=== PATIENT | male | born 1965 | race Caucasian/White ===

== ENCOUNTER 2019-10-14 01:58 | Inpatient (IN) | payer OTHER ==
[~2019-10-14] VITALS: Ht 185.4 cm; Wt 108.6 kg
[2019-10-14] MEDS ORDERED: B-1100 M1 PO (02:31)
[2019-10-14] MEDS ORDERED: FOLI400 PO (02:31)
[2019-10-14] MEDS ORDERED: MELATONIN 5 MG1 EACH PO (02:32)
[2019-10-14] MEDS ORDERED: MULTI-VITAMIN1 EAC2 PO (02:32)
[2019-10-14] MEDS ORDERED: LISI20 PO (02:33)
[2019-10-14] MEDS ORDERED: FAMO20 PO (02:34)
[2019-10-14] MEDS ORDERED: DULO60 PO (02:34)
[2019-10-14] MEDS ORDERED: OMEP20ER PO (02:34)
[2019-10-14] MEDS ORDERED: HYDPAM50 PO (02:35)
[2019-10-14] MEDS ORDERED: METO25 PO (02:36)
[2019-10-14] MEDS ORDERED: CLON.1 PO (02:37)
[2019-10-14] MEDS ORDERED: PROM25 PO (02:38)
[2019-10-14] MEDS ORDERED: TRAZ50 PO (02:39)
[2019-10-14 03:05] LABS: BASOPHILS ABSOLUTE AUTO 0.05 K/mm3 (0.00-0.23); BASOPHILS PERCENT AUTO 1 % (0-2); EOSINOPHILS PERCENT AUTO 2 % (0-6); Hematocrit 39.1 % (37.0-53.0); Hemoglobin 13.9 g/dL (13.5-17.5); IMMATURE GRAN ABSOLUTE AUTO 0.02 K/mm3 (0.00-0.10); IMMATURE GRAN PERCENT AUTO 1 % (0-1); LYMPHOCYTES ABSOLUTE AUTO 1.25 K/mm3 (0.84-5.20); LYMPHOCYTES PERCENT AUTO 30 % (21-46); MONOCYTES ABSOLUTE AUTO 0.61 K/mm3 (0.16-1.47); MONOCYTES PERCENT AUTO 15 % (4-13); Mean Corpuscular HGB 34.9 pg (26.0-34.0); Mean Corpuscular HGB Conc 35.5 g/dL (31.5-36.5); Mean Corpuscular Volume 98 fL (80-100); NEUTROPHILS ABSOLUTE AUTO 2.19 K/mm3 (1.96-9.15); NEUTROPHILS PERCENT AUTO 52 % (41-73); Platelet Count 85 K/mm3 (150-400); RDW Coefficient Variation 12.9 % (11.7-14.2); RDW Standard Deviation 46.6 fL (35.1-46.3); Red Blood Cell Count 3.98 M/mm3 (4.30-5.90); White Blood Cell Count 4.22 K/mm3 (4.00-11.30)
[2019-10-14 03:20] LABS: Alanine Aminotransfer (ALT/SGP 46 U/L (12-78); Albumin, Blood 3.4 g/dL (3.4-5.0); Alk Phos 58 U/L (50-136); Anion Gap 9 mmol/L (6-16); Aspartate Aminotrans (AST/SGOT 57 U/L (12-37); Blood Urea Nitrogen 8 mg/dL (8-24); Bun/Creatinine Ratio 10.6 (12.0-20.0); CO2, Blood 24 mmol/L (21-32); Calcium, Blood 8.6 mg/dL (8.5-10.1); Chloride, Blood 104 mmol/L (98-108); Creatinine, Blood 0.76 mg/dL (0.60-1.20); Globulin, Blood 3.4 g/dL (2.2-4.0); Glomerular Filtration Rate >60 (60-); Glucose, Blood 86 mg/dL (70-99); Potassium, Blood 3.6 mmol/L (3.5-5.5); Sodium, Blood 137 mmol/L (136-145); Total Protein, Blood 6.8 g/dL (6.4-8.2)
--- NOTE | 2019-10-14 06:39 | NUR ---
PT TO ICU ROOM 3 FROM ED AT 0527. PT ALERT TO SELF, FOLLOWS DIRECTIONS BUT NEEDS TO BE REDIRECTED OFTEN. PT EXPERIENCING AUDITORY AND VISUAL DISTURBANCES. PT BELIEVES HE IS "DRIVING HOSPITAL BED" AND IS UNABLE TO "REACH PEDALS", PT MUMBLES INCOHERENTLY, BELIEVES HE IS IN "[place]" AND THAT THE MONTH IS "OCTOBER". PT REORIENTED OFTEN. PT ATTEMPTS TO UNSAFELY AMBULATE AND PULLS ON LINES/CORDS. BED IN LOW/LOCKED POSITION, BED ALARM ON, DOOR/CURTAIN OPEN. PT HAS VISIBLE TREMORS, APPEARS DIAPHORETIC, AND EXPERIENCING TACTILE DISTURBANCES. PT GIVEN 100 MG LIBRIUM UPON ARRIVAL TO ICU WITH LITTLE IMPROVEMENT IN SYMPTOMS, 4 MG ATIVAN GIVEN AND PRECEDEX GTT STARTED. PRECEDEX CURRENTLY AT 0.7 MCG/KG/HR. SEE ADMISSION ASSESSMENT. WILL REPORT TO DAYSHIFT NURSE
--- NOTE | 2019-10-14 08:00 | NUR ---
INITIAL ASSESMENT PT ORIENTED TO SELF, ON PDEX QTT PER MD ORDER AND ATIVAN IV PRN FOR CIWA GREATER THAN 15, CIWAS AVERAGING MID TO HIGH 20S, PT HALLUCINATING BOTH VISUAL AND AUDITORY. PT VERBALLY ABUSIVE AND CURSING. REORIENTATION AND SUPPORT OFFERED, PT SPITTING WATER WHEN OFFERED. AWAN AND WILL NOT FOLLOW COMMANDS. VSS, SR AND AFEBRILE. RA WITH SATS IN THE MID 90S AND CLEAR T/O BILAT BEREATH SOUNDS. INCONTINENT OF URINE. NO BM AND ABD SOFT ROUND AND NON TENDER. RIGHT INNER THIGH AND [place] BRUISED PER FLOWSHEET. WILL CONT TO MONITOR
[2019-10-14 11:46] LABS: Anion Gap 6 mmol/L (6-16); Blood Urea Nitrogen 6 mg/dL (8-24); Bun/Creatinine Ratio 9.3 (12.0-20.0); CO2, Blood 22 mmol/L (21-32); Calcium, Blood 8.6 mg/dL (8.5-10.1); Chloride, Blood 109 mmol/L (98-108); Creatinine, Blood 0.64 mg/dL (0.60-1.20); Glomerular Filtration Rate >60 (60-); Glucose, Blood 100 mg/dL (70-99); Potassium, Blood 3.7 mmol/L (3.5-5.5); Sodium, Blood 137 mmol/L (136-145)
--- NOTE | 2019-10-14 15:05 | NUR ---
PT UPDATE PT INCONTINENT OF URINE AND UNABLE TO MEASURE CORRECT INTAKE AND OUTPUT A RESULT. MD NOTIFIED AND SMITH ORDER PLACED. [employer] R[employer]TE SALES REPRESENTATIVE AND THIS RN INSERTED FOLEYT WITH NO EVENTS. PT BECAME AGGITATED AND VERBALLY ABUSIVE WHEN TRYING TO CHANGE SOILED LINENS. PT SUPPORTED, REDIRECTED AND ORIENTED TO CARE, PT SAT UP IN BED ATTEMPTING TO [employer]CH ROUTE SALES REPRESENTATIVE, THEN ATTEMPTING TO PUNCH THIS RN. SECURITY AND CN CALLED, SECURITY AT BEDSIDE TO ASSIT WITH ASSURING PT AND STAFF SAFETY, TUFF CUFFS APPLIED WITH NO EVENT, PRN ATIVAN PER PROTOCOL. WILL CONT TO MONITOR
[2019-10-14 15:39] LABS: Source, Urine Catheter
[2019-10-14 15:47] LABS: Appearance, Urine Clear (Clear); Bilirubin, Urine Neg (Neg); Blood, Urine Neg (Neg); Color, Urine Yellow (P-Yellow); Glucose Qualitative, Urine Neg (Neg); Ketones, Urine Neg (Neg); Leukocyte Esterase, Urine Neg (Neg); Nitrite, Urine Neg (Neg); Protein, Urine Neg (Neg); Specific Gravity, Urine 1.005 (1.003-1.022); Urobilinogen, Urine NORM (Normal)
--- NOTE | 2019-10-14 20:05 | NUR ---
ASSUMED CARE OF PT, REPORT RCV'D FROM JENNIE ROYAL.] PT CURRENTLY IN BILATERAL UPPER/LOW TAT WITH ELLI. PRECEDEX GTT INFUSING AT 0.4 MCG/KG/HR. PT ALERT TO VERBAL STIMULUS, CONFUSED WITH NONSENSICAL WORDS. PRECEDEX PLACED ON STANDBY BRIEFLY TO ASSESS NEURO STATUS. PT QUICKLY BECAME AGITATED, PULLING ON RESTRAINTS AND CURSING. PT REORIENTED AND PRECEDEX RESTARTED. PT IS VISIBLY TREMULOUS AND DIAPHORETIC. SEIZURE PADS IN PLACE. BED IN LOW/LOCKED POSITION, DOOR/CURTAIN OPEN. CIWA PROTOCOL IN PLACE. SEE FULL SHIFT ASSESSMENT.
--- NOTE | 2019-10-15 01:18 | NUR ---
PT AWAKE PULLING ON RESTRAINTS YELLING "I WANT MY OLD LIFE BACK" PT REORIENTED, PT IRRITABLE, CURSING, AND YELLING TO BE RELEASED. GAVE PT SIPS OF WATER, PT COUGHED, PT NOW SPITTING IN ROOM. WILL HOLD PO MEDICATIONS UNTIL BETTER ABLE TO FOLLOW COMMANDS AND SAFELY SWALLOW. WILL CONTINUE TO MONITOR.
--- NOTE | 2019-10-15 02:35 | NUR ---
PT AGITATED AND REQUESTING TO GO "AMA" AND SPEAK WITH THE "HEAD DOCTOR". PT WAS ABLE TO SWALLOW PO LIBRIUM IN APPLESAUCE, AND TOLERATE ORAL CARE. PT CONTINUES TO BE CONFUSED ASKING HOW LONG THESE "SESSIONS LAST" AND REQUESTING HIS "OLD LIFE BACK". OCCASIONALLY PT MUMBLES INCOHERENTLY AND SPEAKS NONSENSICAL. ORAL CARE PERFORMED Q4 PRN. PT'S BEDDING CHANGED PT HAD SPIT ON BLANKETS.
[2019-10-15 03:36] LABS: Hematocrit 45.1 % (37.0-53.0); Mean Corpuscular HGB 34.9 pg (26.0-34.0); Mean Corpuscular HGB Conc 35.5 g/dL (31.5-36.5); Mean Corpuscular Volume 99 fL (80-100); Mean Platelet Volume 10.9 fL (9.1-12.4); Platelet Count 80 K/mm3 (150-400); RDW Coefficient Variation 13.1 % (11.7-14.2); RDW Standard Deviation 47.2 fL (35.1-46.3); Red Blood Cell Count 4.58 M/mm3 (4.30-5.90); White Blood Cell Count 9.05 K/mm3 (4.00-11.30)
[2019-10-15 03:52] LABS: Anion Gap 11 mmol/L (6-16); Blood Urea Nitrogen 8 mg/dL (8-24); CO2, Blood 18 mmol/L (21-32); Calcium, Blood 8.5 mg/dL (8.5-10.1); Chloride, Blood 109 mmol/L (98-108); Glomerular Filtration Rate >60 (60-); Glucose, Blood 96 mg/dL (70-99); Magnesium, Blood 1.8 mg/dL (1.6-2.4); Phosphorus, Blood 2.9 mg/dL (2.5-4.9); Sodium, Blood 138 mmol/L (136-145)
--- NOTE | 2019-10-15 06:09 | NUR ---
SHIFT SUMMARY PT REMAINS CONFUSED AND AGITATED. LORAZEPAM GTT INFUSING AT 10 MG/MIN. PT'S VSS AND TOLERATING INFUSION RATE WELL. PT DIAPHORETIC, VISIBLE TREMORS, CONFUSED TO PLACE (BELIEVES HE IS IN DETENTION), HALLUCINATING (BELIEVES WE ARE EXPERIMENTING ON HIM). PT PULLS ON RESTRAINTS AND TRIES TO GRAB IV'S AND SMITH. PT REMAINS IN 4PT TAT'S WITH ELLI FOR PT SAFETY. PT FREQUENTLY REASSURED AND REORIENTED. WILL REPORT TO DAYSHIFT NURSE.
--- NOTE | 2019-10-15 12:00 | NUR ---
PT UPDATE PT YELLING, AND AGGITATED DESPITE 8MG IV ATIVAN INFUSION AND PDEX INFUSION WELL IV ATIVAN PRN PER MD ORDER. REMAINS ON RA AND TACHYPNIC WITH DIM BREATH SOUNDS BILAT. WILL NOT FOLLOW COMMANDS AND ATTEMPTS TO HIT. VSS AFEBRILE ANF UO ADEQUATE. PATIENT SPIT OUT AM MEDS AND WILL NOT TAKE ANYTHING PO. WILL CONT TO MONITOR
--- NOTE | 2019-10-15 13:45 | NUR ---
PT UPDATE PT REMAINS AGGITATED AND YELLING, PRN ATIVAN PER MD ORDER AND DRIPS REMAIN. RESTRAINTS REMAIN IN PLACE AND PT UNABLE TO REDIRECT. COURSE AND DIM BREATH SOUNDS BILAT AND EXP WHEEZING AUDIBLE WITH RR IN THE 40S AT TIMES. RT ASKED TO EVAL PATIENT FOR RESP NEEDS.
--- NOTE | 2019-10-15 14:30 | NUR ---
PT UPDATE PT RR IN THE 40S, AUDIBLE SPUTUM IN AIRWAY, WITH SATS IN THE 80S, NC PLACED AND RT AT BEDSIDE TO NT SXN PT WITH VERY LARGE AMOUNT OF YELLOW SPUTUM SXND. RESP STATUS REMAINS LABORED AND COURSE, ALL DRIPS OFF. ADVISED AND PREPARING FOR INTUBATION. PT INTUBATED VIA ED DOC. VENT SET UP OG PLACED. CXR OBTAINED AND PROPOFOL STARTED.
--- NOTE | 2019-10-15 15:43 | NUR ---
WASTED 95ML OF ATIVAN WITH CAMERON CABRALES RN FROM PTS ATIVAN GTT
[2019-10-15 16:15] LABS: Bicarbonate Venous 22.8 mmol/L (24.0-30.0); PCO2 Venous 39.9 mmHg (38-42); PO2 Venous 75.2 mmHg (38-42); pH Blood Venous 7.37 (7.34-7.37)
--- NOTE | 2019-10-15 19:33 | NUR ---
INITIAL ASSESMENT PT ORIENTED TO SELF, ON PDEX QTT PER MD ORDER AND ATIVAN QTT FOR CIWA GREATER THAN 15, CIWAS AVERAGING MID TO HIGH 30S, PT HALLUCINATING BOTH VISUAL AND AUDITORY. PT VERBALLY ABUSIVE AND CURSING. REORIENTATION AND SUPPORT OFFERED, PT SPITTING. AWAN AND WILL NOT FOLLOW COMMANDS FIGHTING RESTRAINTS. VSS, SR AND AFEBRILE. RA WITH SATS IN THE MID 90S AND COURSE T/O BILAT DIM SOUNDS. INCONTINENT OF URINE WITH SMITH IN PLACE AND DRAINING DARK POOJA URINE. NO BM AND ABD SOFT ROUND AND NON TENDER
--- NOTE | 2019-10-15 22:09 | NUR ---
ASSUMED CARE OF PT, REPORT RCV'D FROM JENNIE ROYAL. PT INTUBATED AND SEDATED. VENT SETTINGS AC 14/450/5/40%. PT SEDATED WITH PROPOFOL 15 MCG/KG/MIN, PRECEDEX INFUSION AT 0.6 MCG/KG/HR ADJUNCT TO SEDATION PT'S BP UNABLE TO TOLERATE HIGHER DOSE OF PROPOFOL AT THIS TIME. NS @ 200 MLS/HR INFUSING. OGT TO LIS, PT HAS OCCASIONAL PRODUCTIVE COUGH WITH MODERATE AMOUNT OF THICK YU SPUTUM SUCTIONED. SMITH PATENT AND DRAINING POOJA COLORED URINE. PT VISIBLY TREMULOUS, BODY IS STIFF WITH REPOSITIONING. WILL CONTINUE CIWA PROTOCOL TO ASSESS WITHDRAWAL SYMPTOMS. LIBRIUM ADMINISTERED PER TUBE, ATIVAN ADMINISTERED PER EMAR/CIWA. SEE FULL SHIFT ASSESSMENT
[2019-10-16 03:26] LABS: Hematocrit 41.1 % (37.0-53.0); Hemoglobin 14.1 g/dL (13.5-17.5); Mean Corpuscular HGB 34.9 pg (26.0-34.0); Mean Corpuscular HGB Conc 34.3 g/dL (31.5-36.5); Mean Platelet Volume 11.2 fL (9.1-12.4); Platelet Count 83 K/mm3 (150-400); RDW Coefficient Variation 13.3 % (11.7-14.2); RDW Standard Deviation 50.6 fL (35.1-46.3); Red Blood Cell Count 4.04 M/mm3 (4.30-5.90); White Blood Cell Count 7.05 K/mm3 (4.00-11.30)
[2019-10-16 03:29] LABS: Mean Corpuscular Volume 102 fL (80-100)
[2019-10-16 03:40] LABS: Anion Gap 7 mmol/L (6-16); Blood Urea Nitrogen 9 mg/dL (8-24); Bun/Creatinine Ratio 11.4 (12.0-20.0); CO2, Blood 23 mmol/L (21-32); Calcium, Blood 7.6 mg/dL (8.5-10.1); Chloride, Blood 109 mmol/L (98-108); Creatinine, Blood 0.79 mg/dL (0.60-1.20); Glomerular Filtration Rate >60 (60-); Glucose, Blood 102 mg/dL (70-99); Potassium, Blood 3.4 mmol/L (3.5-5.5); Sodium, Blood 139 mmol/L (136-145)
--- NOTE | 2019-10-16 06:17 | NUR ---
SHIFT SUMMARY PT REMAINS INTUBATED, VENT SETTINGS AC 14/450/5/30%. SEDATED WITH PROPOFOL 25 MCG/KG/MIN AND PRECEDEX 0.6 MCG/KG/HR. PT EXHIBITS INCREASING TREMORS AND STIFFNESS WITH STIMULI REQUIRING ATIVAN. PT SPENT MOST OF SHIFT ADEQUATELY SEDATED UNTIL APPRO 0430 WHEN PT BECAME INCREASINGLY AGITATED THRASHING HEAD BACK/FORTH, PULLING ON RESTRAINTS, KICKING LEGS. RR INCREASED TO 40-60, O2 SATURATION DECREASED TO LOW 80'S, WITH INCREASED PEAK PRESSURES. RT AT BEDSIDE, PT SUCTIONED AND SEDATION TEMPORARILY INCREASED. MODERATE AMOUNT OF THICK YU SECRETIONS SUCTIONED FROM ETT. 200 MLS GREEN BILE FRO OGT. BP AND HR REMAINED WNL. WILL REPORT TO DAYSHIFT NURSE.
--- NOTE | 2019-10-16 08:00 | NUR ---
INITIAL ASSESMENT PT ON PDEX QTT AND PROPOFOL QTT PER MD ORDER AND ATIVAN PRN FOR CIWA GREATER THAN 15, PT WILL FOLLOW SIMPLE COMMANDS WITH SEDATION OFF BUT QUICKLY BECOMES AGGITATED, UNABLE TO REDIRECT AND STARTS TO FIGHT THE VENT AND PULL ON LINES AND TUBES, FIGHTING RESTRAINTS AND LIMITING VENTILATION. SEDATE RESUMED VSS, SR AND AFEBRILE. 30% WITH SATS IN THE MID 90S AND COURSE T/O BILAT DIM SOUNDS WITH 8.0 ETT AT 24. TF TO BE INITIATED FOLLWOING DIETARY CONSULT. SMITH IN PLACE AND DRAINING DARK POOJA URINE. NO BM AND ABD SOFT ROUND AND NON TENDER. WILL CONT TO MONITOR AND SWITCH PT OFF PS VENT IF NEEDED.
--- NOTE | 2019-10-16 16:00 | NUR ---
PT UPDATE NO ACUTE CHANGES. PT REMAINS ON SBT AND PDEX/PROPOFOL INFUSING PER MD ORDER. PT WILL WITHDRAW FROM PAIN, VSS, VENT SETTINGS REMAIN AND STABLE. UO MINIMAL BUT ADEQUATE. TOLERATING TF. WILL CONT TO MONITOR
[2019-10-17 03:19] LABS: BASOPHILS ABSOLUTE AUTO 0.04 K/mm3 (0.00-0.23); BASOPHILS PERCENT AUTO 1 % (0-2); EOSINOPHILS ABSOLUTE AUTO 0.08 K/mm3 (0.00-0.68); EOSINOPHILS PERCENT AUTO 1 % (0-6); Hematocrit 40.1 % (37.0-53.0); Hemoglobin 13.8 g/dL (13.5-17.5); IMMATURE GRAN ABSOLUTE AUTO 0.04 K/mm3 (0.00-0.10); IMMATURE GRAN PERCENT AUTO 1 % (0-1); LYMPHOCYTES ABSOLUTE AUTO 1.22 K/mm3 (0.84-5.20); LYMPHOCYTES PERCENT AUTO 18 % (21-46); MONOCYTES ABSOLUTE AUTO 1.42 K/mm3 (0.16-1.47); MONOCYTES PERCENT AUTO 21 % (4-13); Mean Corpuscular HGB Conc 34.4 g/dL (31.5-36.5); Mean Corpuscular Volume 102 fL (80-100); Mean Platelet Volume 10.9 fL (9.1-12.4); NEUTROPHILS ABSOLUTE AUTO 3.92 K/mm3 (1.96-9.15); NEUTROPHILS PERCENT AUTO 58 % (41-73); Platelet Count 88 K/mm3 (150-400); RDW Coefficient Variation 13.2 % (11.7-14.2); RDW Standard Deviation 49.4 fL (35.1-46.3); Red Blood Cell Count 3.94 M/mm3 (4.30-5.90); White Blood Cell Count 6.72 K/mm3 (4.00-11.30)
[2019-10-17 03:34] LABS: Anion Gap 6 mmol/L (6-16); Blood Urea Nitrogen 9 mg/dL (8-24); Bun/Creatinine Ratio 12.3 (12.0-20.0); CO2, Blood 25 mmol/L (21-32); Calcium, Blood 7.8 mg/dL (8.5-10.1); Chloride, Blood 109 mmol/L (98-108); Creatinine, Blood 0.73 mg/dL (0.60-1.20); Glomerular Filtration Rate >60 (60-); Glucose, Blood 99 mg/dL (70-99); Magnesium, Blood 1.9 mg/dL (1.6-2.4); Phosphorus, Blood 2.6 mg/dL (2.5-4.9); Potassium, Blood 3.3 mmol/L (3.5-5.5); Sodium, Blood 140 mmol/L (136-145)
--- NOTE | 2019-10-17 06:18 | NUR ---
SHIFT SUMMARY PATIENT DID WELL TONIGHT. INCREASED PROPOFOL DRIP FOR AGITATION, TOLERATED VENTILATOR THROUGH REST OF NIGHT. VERY STRONG, EVERY TIME WE TURNED PATIENT MADE STRENUOUS EFFORT TO ATTEMPT TO SELF-EXTUBATE. VSS. ASSESSMENT IS CHARTED. WILL CONTINUE TO MONITOR.
--- NOTE | 2019-10-17 07:00 | NUR ---
ASSUMING CARE: ASSUMED CARE OF PT. PT IS INTUBATED AND VENTED. AFEBRILE. PT IS ON SPONTANEOUS BREATHING TRIAL 03/26, FI02 @ 30%. PT IS ON PROPOFOL DRIP @ 20MCG/KG/MIN, PRECEDEX @ 0.MCG/KG/HR. HE DOES NOT OPEN HIS EYES TO VOICE BUT DOES FOLLOW COMMANDS. ON TUBE FEEDINGS WITH HIGH VITAL PROTEIN @ 45ML/HR WITH MINIMAL RESIDUAL. PT HAS BEEN ON SPONTANEOUS BREATHING TRIAL FOR ALMOST 24 HOURS NOW.
--- NOTE | 2019-10-17 09:37 | NUR ---
PT IS STILL ON SBT. TOLERATING WELL. PT STARTED TO BE SLIGHTLY RESTLESS AND REACHING FOR THE TUBE. INCREASED PROPOFOL DRIP TO 26MCG/KG/MIN.
--- NOTE | 2019-10-17 10:50 | NUR ---
DR. BEACH AT BEDSIDE UPDATED HER OF PT'S STATUS. TURNED OFF PRECEDEX AND PROPOFOL DRIP @ 1055 THIS MORNING.
--- NOTE | 2019-10-17 11:30 | NUR ---
1124- PT WAS EXTUBATED TO ROOM AIR AT THIS TIME.
--- NOTE | 2019-10-17 15:30 | NUR ---
DR. BEACH WAS NOTIFIED REGARDING PT EXPRESSING TO GO HOME AGAINST MEDICAL ADVICE. PT IS ORIENTED AT TIMES BUT MOSTLY CONFUSED. CALLED PT'S DAUGHTER JORGE, SHE WAS ABLE TO TALK TO THE PATIENT. DR. BEACH TALKED TO THE PATIENT WELL. PT IS NOT PHYSICALLY ABLE TO GET UP OUT OF BED. PT IS WEAK. PT IS STILL ON ALCOHOL WITHDRAWAL.
--- NOTE | 2019-10-17 18:23 | NUR ---
174-NOTED PT STANDING AT THE SIDE OF THE BED WITH BED RAILS UP. PT WAS TRYING TO LEAVE. DR. BEACH WAS NOTIFIED REGARDING THIS. ORDERS TO GIVE PATIENT 2 MG OF ATIVAN AND INCREASE PRECEDEX DRIP TO 1.4MCG/KG/HR MAX DOSE. 1819-PT IS CALM AT THIS TIME AND ASLEEP. DR. BEACH WAS NOTIFIED PT OF PT'S PROGRESS.
--- NOTE | 2019-10-17 19:25 | NUR ---
SHIFT SUMMARY: PT IS ASLEEP AT THIS TIME. ON PRECEDEX DRIP @ 1.4MCG/KG/HR ORDERED BY DR. BEACH. PT'S DAUGHTER JORGE WAS NOTIFIED REGARDING PT GETTING OUT OF BED AND NOW ON RESTRAINTS. AFEBRILE. PT HAD RECEIVED 2 DOSES OF HYDRALAZINE FOR HYPERTENSION AND 2 DOSES OF ATIVAN FOR ALCOHOL WITHDRAWAL. CIWA 21-26.
--- NOTE | 2019-10-17 22:57 | NUR ---
CARE ASSUMED BEDSIDE REPORT RECEIVED, CARE ASSUMED AT 1900 FROM JENNIE DELACRUZ. UPON ASSUMING CARE, PT IN TOUGH CUFFS TO ALL FOUR EXTREMITIES. PT AROUSES, BUT CONFUSED AND ANGRY. PT BEGINS YELLING, DIFFICULT TO UNDERSTAND. PULLING AT RESTRAINTS. NUBIA, DAY SHIFT RN TO BEDSIDE TO CALM PT. PT QUICKLY CALMS, AND GOES BACK TO SLEEP. VITALS STABLE WITH EXEPTION OF ELEVATED BLOOD PRESSURE, SEE FLOWSHEET. INITIAL ASSESSMENT REVEALED TOUGH CUFFS IN GOOD PLACEMENT, ALL FOUR EXTREMITIES PINK, WARM AND DRY. AT REPEAT ASSESSMENT AT 2100, LEFT HAND COMPLETELY BLUE/PURPLE PT HAD PULLED ON RESTRAINT AND IT HAD GONE UP FURTHER ON WRIST AND WAS CUTTING OF CIRCULATION. TOUGH CUFF IMMEDIATELY REMOVED. HAND DISCOLORATION IMPROVED WITHIN 2 MINUTES, PT ABLE TO SQUEEZE HAND WHEN REQUESTED. PT TAKEN OUT OF TOUGH CUFFS AND PUT IN VEST AND BILATERAL WRIST RESTRAINTS TO CONTINUE TO PROTECT PT FROM FALLS, ACCIDENTAL SELF HARM, OR PULLING AT LINES. PT ALSO NOTED TO HAVE EXTREMELY LABILE CIWA ASSESSMENTS AND RESPONSE TO PRECEDEX SEDATION. PT GOES FROM COMPLETELY ASLEEP, BREATHING SHALLOW AND DIFFICULT TO AROUSE, TO AWAKE, PULLING AT RESTRAINTS, AND TALKING. PT APPEARS FRUSTRATED/UPSET BUT IS DIFFICULT TO UNDERSTAND. ATTEMPTED TO TITRATE PRECEDEX DOWN UNSUCCESSFULLY. WHEN DECREASED, PT SITS UP IN BED, THROWS LEGS OUT OF BED, SAYS, "I AM GETTING OUT OF HERE!" UNABLE TO REASON WITH PATIENT HE DOES NOT REDIRECT WHEN EDUCATED. PRECEDEX BACK TO INITIAL RATE OF 1.4 MCG/KG/HR. BLOOD PRESSURE CONTINUES TO BE ELEVATED, LIKELY RELATED TO AGITATION, BUT HESITANT TO GIVE PT ADDITIONAL SEDATIVE SUCH ATIVAN HE IS DIFFICULT TO AROUSE, HAS SHALLOW RESPIRATIONS AND WEAK COUGH WHEN ON THE SEDATED SIDE OF HIS LABILE RESPONSE TO THE PRECEDEX. WILL CONTINUE TO CLOSELY MONITOR SEDATION, CIWA AND VITAL SIGNS.
--- NOTE | 2019-10-18 03:00 | NUR ---
AGITATION ATTEMPTED TO GIVE PATIENT OPPORTUNITY TO BE OFF OF SOFT WRIST RESTRAINTS. PATIENT IMMEDIATELY PULLING AT SMITH AND IV LINES. CUSSING AND STATING, "I AM TAKING ALL THIS OFF AND GETTING OUT OF HERE." PT INITIALLY REDIRECTABLE AND APPEARS TO UNDERSTAND, THEN OUT OF NOWHERE LUNGES FACE, ARMS AND LEGS TOWARD STAFF AND STARTS YELLING. BILAT WRIST RESTRAINTS PLACED BACK ON.
[2019-10-18 03:48] LABS: BASOPHILS ABSOLUTE AUTO 0.06 K/mm3 (0.00-0.23); BASOPHILS PERCENT AUTO 1 % (0-2); EOSINOPHILS PERCENT AUTO 2 % (0-6); Hematocrit 42.4 % (37.0-53.0); Hemoglobin 14.8 g/dL (13.5-17.5); IMMATURE GRAN ABSOLUTE AUTO 0.02 K/mm3 (0.00-0.10); IMMATURE GRAN PERCENT AUTO 0 % (0-1); LYMPHOCYTES ABSOLUTE AUTO 1.34 K/mm3 (0.84-5.20); LYMPHOCYTES PERCENT AUTO 22 % (21-46); MONOCYTES ABSOLUTE AUTO 1.75 K/mm3 (0.16-1.47); MONOCYTES PERCENT AUTO 29 % (4-13); Mean Corpuscular HGB 34.7 pg (26.0-34.0); Mean Corpuscular HGB Conc 34.9 g/dL (31.5-36.5); Mean Platelet Volume 10.9 fL (9.1-12.4); NEUTROPHILS ABSOLUTE AUTO 2.79 K/mm3 (1.96-9.15); NEUTROPHILS PERCENT AUTO 46 % (41-73); Platelet Count 110 K/mm3 (150-400); RDW Coefficient Variation 12.7 % (11.7-14.2); RDW Standard Deviation 46.5 fL (35.1-46.3); Red Blood Cell Count 4.27 M/mm3 (4.30-5.90); White Blood Cell Count 6.06 K/mm3 (4.00-11.30)
[2019-10-18 03:50] LABS: Mean Corpuscular Volume 99 fL (80-100)
[2019-10-18 04:03] LABS: Anion Gap 7 mmol/L (6-16); Blood Urea Nitrogen 5 mg/dL (8-24); Bun/Creatinine Ratio 7.5 (12.0-20.0); CO2, Blood 26 mmol/L (21-32); Calcium, Blood 8.5 mg/dL (8.5-10.1); Chloride, Blood 110 mmol/L (98-108); Creatinine, Blood 0.67 mg/dL (0.60-1.20); Glomerular Filtration Rate >60 (60-); Glucose, Blood 98 mg/dL (70-99); Magnesium, Blood 1.8 mg/dL (1.6-2.4); Phosphorus, Blood 2.4 mg/dL (2.5-4.9); Potassium, Blood 3.3 mmol/L (3.5-5.5); Sodium, Blood 143 mmol/L (136-145)
--- NOTE | 2019-10-18 05:29 | NUR ---
SUMMARY SINCE PREVIOUS NOTE, PT HAS BEEN SLEEPING, INTERMITTENTLY AROUSING TO YELL/CUSS AT STAFF WITHOUT STIMULATION. MULTIPLE ATTEMPTS TO EDUCATE PATIENT. PT NOT RECEPTIVE TO EDUCATION. PRECEDEX HAS CONTINUED AT 1.4 MCG/KG/HR. PT HAS NOT BEEN GIVEN ATIVAN. LIBRIUM HELD PT NOT ABLE TO TOLERATE PO. ATTEMPTED SMALL SPOON FULL OF WATER TWO TIMES AND PT HAD WEAK COUGH AFTER EACH ATTEMPT. HYDRALAZINE TO MANAGE ELEVATED BLOOD SUGARS. PT REPOSITIONING SELF FREQUENTLY IN BED. SEE EMAR, FLOWSHEET AND REPEAT ASSESSMENTS.
--- NOTE | 2019-10-18 11:22 | NUR ---
CARE ASSUMED ASSESSMENT COMPLETED. PRECEDEX AT 1.4MCG, PT DROWSY, WAKES TO VOICE, COOPERATIVE WITH CARE AT THIS TIME BUT REMAINS CONFUSED. VSS, HR 60'S NSR, LS CTA. SMITH PATENT AND DRAINING, SCD'S ON. PT REMAINS IN BUE RESTRAINTS AND ELLI. WATER GIVEN, PT TOLERATED WELL, AM MEDS ADMINISTERED. DR. BEACH IN TO SEE PT, FLUIDS INFUSING PER ORDERS. WILL MEDICATE FOR HTN PRN AND TITRATE PRECEDEX ABLE. PT HAD LIBRIUM PO WITH AM MEDS. MOODS LABILE, NO AGGRESSIVE BEHAVIORS NOTED THIS MORNING.
--- NOTE | 2019-10-18 12:17 | NUR ---
UPDATE SAFETY PLAN COMPLETED BY [facility]. PT'S VS REMAIN STABLE, EATING LUNCH AT THIS TIME, PLEASANT AND COOPERATIVE. POISON CONTROL UPDATED, CASE CLOSED. PT MEDICATED WITH ATIVAN FOR MILD ANXIETY, DENIES OTHER NEEDS. MONITORING AND SUICIDE PRECAUTIONS REMAIN IN PLACE.
--- NOTE | 2019-10-18 12:19 | NUR ---
UPDATE PT REMAINS DROWSY, WAKES EASILY TO VOICE, HAS BEEN COOPERATIVE WITH CARE, HAS BEEN INTERMITTENTLY AGITATED/EMOTIONAL, CALMS QUICKLY WITH REORIENTATION AND REASSURANCE. NO COMBATIVE BEHAVIORS NOTED, VSS. CONTINUING TO TITRATE PRECEDEX DOWN ABLE, PT HAS TOLERATED PO LIBRIUM WITHOUT DIFFICULTY.
--- NOTE | 2019-10-18 16:40 | NUR ---
UPDATE PT GIVEN BEDBATH EARLIER, RELEASED RESTRAINTS AND ELLI FOR A SHORT BREAK, PT ATTEMPTED TO GET OOB ON OWN. ELLI AND BUE RESTRAINTS BACK ON, PT TOLERATING WELL. VSS, PT SLEEPING, PRECEDEX AT 0.7MCG AT THIS TIME, WILL CONTINUE TO TITRATE ABLE. PT'S FRIEND AT BEDSIDE TO VISIT. PULMONOLOGY SIGNED OFF.
--- NOTE | 2019-10-18 18:30 | NUR ---
END OF SHIFT PRECEDEX INFUSING AT 0.5MCG, PT TOLERATING PO LIBRIUM WITHOUT DIFFICULTY, IS CALM AND COOPERATIVE, THOUGH CONFUSED AT THIS TIME. SWB RESTRAINTS RELEASED, ELLI REMAINS IN PLACE. PT RESTING ON LEFT SIDE WITH EYES CLOSED, NO AGITATION NOTED. NO COMBATIVE OR AGRESSIVE BEHAVIORS THIS SHIFT. DAUGHTER UPDATED ON PATIENT STATUS. VS REMAIN STABLE, SPEECH CLEARING BUT REMAINS SLIGHTLY SLURRED. REPORT TO ONCOMING SHIFT.
--- NOTE | 2019-10-18 19:40 | NUR ---
ASSESSMENT/ASSUMED CARE PT MOVING SELF AROUND IN BED. AWAKE. ANSWERING QUESTIONS, SPEECH SLURRED. ABLE TO ANSWER ALL QUESTIONS EXCEPT WHERE HE IS. REORIENTED. FOLLOWING INSTRUCTIONS. LUNGS CLEAR ON ROOMAIR. RESP EVEN AND NONLABORED. DENIES SOB. HEART RATE REGULAR, BP STABLE. NO EDEMA. BT+ ABD SOFT AND NONTENDER, DENIES N/V. STATES,"I WANT SOMETHING TO EAT LATER. I DIDN'T GET ANY DINNER". SMITH CATH PATENT DRAINING YELLOW URINE. VEST RESTRAINT ON ALONG WITH BED ALARM. IV TO RIGHT UPPER ARM WITH NS AT TKO AND PRECEDEX AT 0.5 MCQ/KG/HR.
[2019-10-19 03:53] LABS: BASOPHILS ABSOLUTE AUTO 0.05 K/mm3 (0.00-0.23); BASOPHILS PERCENT AUTO 1 % (0-2); EOSINOPHILS ABSOLUTE AUTO 0.13 K/mm3 (0.00-0.68); EOSINOPHILS PERCENT AUTO 3 % (0-6); Hematocrit 40.7 % (37.0-53.0); IMMATURE GRAN ABSOLUTE AUTO 0.01 K/mm3 (0.00-0.10); IMMATURE GRAN PERCENT AUTO 0 % (0-1); LYMPHOCYTES ABSOLUTE AUTO 1.06 K/mm3 (0.84-5.20); LYMPHOCYTES PERCENT AUTO 21 % (21-46); MONOCYTES ABSOLUTE AUTO 1.42 K/mm3 (0.16-1.47); MONOCYTES PERCENT AUTO 28 % (4-13); Mean Corpuscular HGB 34.3 pg (26.0-34.0); Mean Corpuscular HGB Conc 34.4 g/dL (31.5-36.5); Mean Corpuscular Volume 100 fL (80-100); NEUTROPHILS ABSOLUTE AUTO 2.42 K/mm3 (1.96-9.15); NEUTROPHILS PERCENT AUTO 48 % (41-73); Platelet Count 127 K/mm3 (150-400); RDW Coefficient Variation 12.6 % (11.7-14.2); RDW Standard Deviation 46.4 fL (35.1-46.3); Red Blood Cell Count 4.08 M/mm3 (4.30-5.90); White Blood Cell Count 5.09 K/mm3 (4.00-11.30)
[2019-10-19 04:11] LABS: Alanine Aminotransfer (ALT/SGP 28 U/L (12-78); Albumin, Blood 2.9 g/dL (3.4-5.0); Albumin/Globulin Ratio 0.8 (0.8-1.8); Alk Phos 45 U/L (50-136); Anion Gap 4 mmol/L (6-16); Aspartate Aminotrans (AST/SGOT 26 U/L (12-37); Bilirubin, Total 1.3 mg/dL (0.1-1.0); Blood Urea Nitrogen 5 mg/dL (8-24); Bun/Creatinine Ratio 6.8 (12.0-20.0); CO2, Blood 30 mmol/L (21-32); Calcium, Blood 8.7 mg/dL (8.5-10.1); Chloride, Blood 104 mmol/L (98-108); Creatinine, Blood 0.74 mg/dL (0.60-1.20); Globulin, Blood 3.5 g/dL (2.2-4.0); Glomerular Filtration Rate >60 (60-); Glucose, Blood 103 mg/dL (70-99); Magnesium, Blood 1.5 mg/dL (1.6-2.4); Phosphorus, Blood 3.6 mg/dL (2.5-4.9); Potassium, Blood 4.3 mmol/L (3.5-5.5); Sodium, Blood 138 mmol/L (136-145); Total Protein, Blood 6.4 g/dL (6.4-8.2)
--- NOTE | 2019-10-19 06:09 | NUR ---
SHIFT SUMMARY PT SITTING UP IN BED WATCHING TV AND DRINKING COFFEE. CIWA DURING THE NIGHT 7-8. PRECEDEX AT 0.5 MCQ/KG/HR. PT FOLLOWING INSTRUCTIONS. UP TO BSC WITH TWO ASSIST AND WALKER. SMITH CATH DC'D INTACT. PT MORE A&O STILL CONFUSED REGARDING DATE AND PLACE AT TIMES. VSS. SLEEP APNEA NOTED WHEN PT LAYING ON BACK WITH SPO2 DOWN TO 74% THAN RIGHT BACK UP TO 96%. WHEN PT TURNS ONTO SIDE SPO2 REMAINS HIGH 90'S. VEST RESTRAINT ON ALONG WITH BED ALARM. REPORT TO ON COMING NURSE
--- NOTE | 2019-10-19 09:35 | NUR ---
CARE ASSUMED ASSESSMENT COMPLETED. PT AWAKE, ALERT AND ORIENTED TO SELF AND SITUATION, FOLLOWING DIRECTIONS, APPROPRIATE AND COOEPRATIVE WITH CARE. VSS, HR SINUS, PT DENIES PAIN OR C/O AT THIS TIME. SAT UP IN BED AND ATE BREAKFAST, TOLERATED PO WELL. IS ABLE TO MAINTAIN APPROPRIATE CONVERSATION WITH STAFF, IS PLEASANT. ELLI RELEASED, TITRATING PRECEDEX DOWN ABLE. PT VOIDING IN URINAL. DAUGHTER UPDATED, DR. SCHMID IN TO ASSESS.
--- NOTE | 2019-10-19 13:42 | NUR ---
UPDATE PT ALERT AND ORIENTED TO SELF, PLACE, AND SITUATION, IS PLEASANT AND COOPERATIVE WITH CARE BUT STATES THAT HE IS GOING TO LEAVE AMA THIS EVENING WHEN HIS FRIEND ARRIVES TO PICK HIM UP. IMPORTANCE OF COMPLETING HOSPITAL STAY DISCUSSED WITH PATIENT, PT VERBALIZES UNDERSTANDING BUT DOES NOT CHANGE HIS MIND. VSS, PRECEDEX TITRATED OFF, PT REMAINS CALM AND COOOPERATIVE. PT HAD PHYSICAL THERAPY, GAIT STEADY WITH WALKER AND SBA, GOOD EFFORT. TOLERATING MEALS WITHOUT DIFFICULTY, IS NOW BACK IN BED RESTING, DENIES NEEDS. REPOSITIONS SELF IN BED. ELLI REMAINS OFF.
--- NOTE | 2019-10-19 17:07 | NUR ---
UPDATE PT REPORTED FEELING AGITATED AROUND 1600, MEDICATED WITH PRN LIBRIUM. AT 1700, PT'S HR AND BP ARE ELEVATED, PT IS C/O FEELING COLD, SHIVERING, TREMULOUS, ANXIOUS. PRECEDEX RESUMED AT THIS TIME, WILL TITRATE TO EFFECT. PT REQUESTING GABAPENTIN FROM HIS HOME REGIM[facility], MESSAGE LEFT FOR DR. SCHMID.
[2019-10-19] MEDS ORDERED: CHLO25 PO (17:52)
[2019-10-19] MEDS ORDERED: Naltrexone HCl50 MG PO (17:54)
[2019-10-19] MEDS ORDERED: DISU250 PO (18:00)
[2019-10-19] MEDS ORDERED: GABA300 PO (18:01)
--- NOTE | 2019-10-19 18:54 | NUR ---
END OF SHIFT PT SLEPT AFTER PRECEDEX RESUMED, VS STABLILIZED. PT WOKEN FOR LIBRIUM, PLEASANT AND COOPERATIVE UPON WAKING, ORIENTED X4 AND APPROPRIATE. PT REQUESTING TO WALK IN UNIT, AMBULATED WITH THIS RN AND WALKER, REMAINS WEAK, GAIT STEADY WITH SBA. AFTER AMBULATION, PT TO CHAIR TO EAT DINNER. PT DENIES C/O AT THIS TIME, REPORTS HE IS FEELING BETTER, DENIES AGITATION. CIWA 5 AT THIS TIME WITH PRECEDEX AT 0.2MCG AND SCHEDULED LIBRIUM. REPORT TO ONCOMING SHIFT.
--- NOTE | 2019-10-19 18:56 | NUR ---
VALUABLES/MEDICATIONS WALLET AND KEYS GIVEN TO SECURITY TO BE LOCKED IN SAFE, ENVELOPE NUMBER [id number]. MEDICATIONS SENT TO PHARMACY, MEDICATION RECEIPT ON CHART.
[2019-10-20 04:16] LABS: Alanine Aminotransfer (ALT/SGP 30 U/L (12-78); Albumin/Globulin Ratio 0.8 (0.8-1.8); Alk Phos 46 U/L (50-136); Anion Gap 7 mmol/L (6-16); Aspartate Aminotrans (AST/SGOT 28 U/L (12-37); Blood Urea Nitrogen 5 mg/dL (8-24); CO2, Blood 28 mmol/L (21-32); Calcium, Blood 8.7 mg/dL (8.5-10.1); Chloride, Blood 105 mmol/L (98-108); Creatinine, Blood 0.72 mg/dL (0.60-1.20); Globulin, Blood 3.7 g/dL (2.2-4.0); Glomerular Filtration Rate >60 (60-); Glucose, Blood 86 mg/dL (70-99); Magnesium, Blood 1.7 mg/dL (1.6-2.4); Potassium, Blood 3.3 mmol/L (3.5-5.5); Sodium, Blood 140 mmol/L (136-145); Total Protein, Blood 6.7 g/dL (6.4-8.2)
--- NOTE | 2019-10-20 06:31 | NUR ---
pATIENT HAS HAD A FAIRLY UNEVENTFUL NIGHT. PRECEDEX AT 0.2MCG/KG/HOUR. CIWA SCORE FROM 9 DOWN TO 2. HE IS MOTIVATED TO BE OUT OF THE HOSPITAL BY TUESDAY, BECAUSE HIS ADULT CHILDREN ARE COMING TO SEE HIM. HE HAS WALKED AROUND THE UNIT TWICE ON THIS SHIFT AND THE LAST TIME WAS SLIGHTLY BETTER. HE WALKED FURTHER THE 2ND TIME, BUT WAS SLIGHTLY MORE TREMULOUS IN UPPER BODY. HE ONLY SLEPT FOR WHAT HE STATED WAS ABOUT AN HOUR AT A TIME. hE IS APPROPRIATE AND COOPERATIVE WITH ALL CARE. NO ACUTE CHANGES THIS SHIFT.
--- NOTE | 2019-10-20 07:30 | NUR ---
Received report from Caty SCHNEIDER. He is sitting up in the recliner doing well. He is aoppropriate and is able to communicate his needs. He is calm and cooperative with care.He has 18ga RAC dressing intact and site WNL's and is infusing Precedex at 0.2 mcg/kg/hr and NS TKO. He is on RA and sats mid to upper 90%'s. He has 20ga LW dressing intact and is flushed and SL's.
--- NOTE | 2019-10-20 09:06 | NUR ---
Patient is back in bed, he walked entire ICU both sides and about 100 feet without walker. We did this after breakfast which he ate 100% and 320ml. He tolerated all am meds with water and refused am care until later. He remains on RA throughout process and sats mid 90%'s. He uses urinal appropriately whils standing, 300ml dark claudia urine. Dr Degroot was by and assessed patient, I placed Precedex on standby and has been doing well.
--- NOTE | 2019-10-20 11:28 | NUR ---
ASSUMED CARE PT. ALERT AND ORIENTED AT THIS TIME, MOOD IS IRRITABLE. REPORTS HE DIDN'T SLEEP AT ALL LAST NIGHT. PT. REPORTS HAS HAS BEEN UP AND OUT OF BED TODAY WITH OUT ISSUES. REPORTS "BODY ACHES", AFEBIREL. PT. HAS MASK TO ASSIST WITH SLEEPING. PT. ABLE TO REPOSITION SELF IN BED NEEDED. CALL LIGHT IN REACH.
--- NOTE | 2019-10-20 13:03 | NUR ---
PT UP TO BEDSIDE CHAIR, MED WITH TYLENOL FOR "BODY ACHES", PT REFUSED LUNCH TRAY REPORTS HE IS STILL TRYING TO GET SOME SLEEP.
--- NOTE | 2019-10-20 13:52 | NUR ---
CALL TO DR. SCHMID UPDATED ON PT. STATUS. PLANS FOR TRANSFER TO MEDICAL FLOOR. PT. ALSO REQUESTING HOME MED GABAPENTIN RESTARTED, MED ORDERED PER DR. SCHMID AT HOME DOSE. PT AWARE.
--- NOTE | 2019-10-20 15:56 | NUR ---
REPORT CALLED TO MEDICAL FLOOR RN, PT. BELONGINGS TAKEN ALONG WITH PT TO MEDICAL FLOOR, PT. REMAINS SALINE LOCKED. VSS UPON TRANSFER TO FLOOR. PT. DAUGHTER CALLED AND UPDATED ON ROOM CHANGED.
--- NOTE | 2019-10-20 18:02 | NUR ---
RECEIVED FROM ICU VIA BED AT 1615. HE STOOD AND TRANSFERRED OVER TO THE NEW BED. HE IS OX3. HE IS WEAK AND TREMULOUS. CIWA SCORE LOW. NO SWEATS, H/A, OR HALLUCINATIONS. HE IS COOPERATIVE AND EATING SOME DINNER. HE SAYS HIS APPETITE IS NOT VERY GOOD YET. HE AMBULATED TO THE BATHROOM WITH SBA AND A WALKER. SCHEDULED LIBRIUM GIVEN.
--- NOTE | 2019-10-21 03:36 | NUR ---
SHIFT SUMMARY ASSUMED CARE OF PT AT 1900. PT IS A/O X4, STATES HE HAS NEUROPATHY IN HIS LOWER EXTREMITIES, MEDICATED PER EMAR. PT WAS TEARFUL WHEN TALKING ABOUT QUITING DRINKING AND GETTING HIS LIFE BACK ON TRACK. HEART SOUNDS REGULAR, LUNG SOUNDS CLEAR, DENIES SOB/CP AT THIS TIME. PT IS VERY MOTIVATED TO WALK ON HIS OWN, PT TOOK SEVERAL WALKS IN THE HALLWAY BEFORE HE SLEPT. CIWAH SCORE WAS A 3. NO ACUTE CHANGES NOTED T/O THE NIGHT. PT SLEPT MOST OF THE NIGHT EXCEPT FOR WHEN HE AOKE WITH PAIN IN HIS KNEES, MEDICATED PER EMAR. PT ASKED FOR SOMETHING TO SLEEP BUT PT HAD ALREADY RECEIVED ALL SLEEPING MEDICATIONS. CALL LIGHT IN REACH, BED IN LOWEST POSTION, WILL CONTINUE TO MONITOR UNTIL DAYSHIFT NURSE ARRIVES.
[2019-10-21 06:04] LABS: BASOPHILS ABSOLUTE AUTO 0.06 K/mm3 (0.00-0.23); BASOPHILS PERCENT AUTO 1 % (0-2); EOSINOPHILS PERCENT AUTO 2 % (0-6); Hematocrit 43.6 % (37.0-53.0); Hemoglobin 14.9 g/dL (13.5-17.5); IMMATURE GRAN PERCENT AUTO 0 % (0-1); LYMPHOCYTES ABSOLUTE AUTO 2.09 K/mm3 (0.84-5.20); LYMPHOCYTES PERCENT AUTO 36 % (21-46); MONOCYTES ABSOLUTE AUTO 1.66 K/mm3 (0.16-1.47); MONOCYTES PERCENT AUTO 29 % (4-13); Mean Corpuscular HGB 34.3 pg (26.0-34.0); Mean Corpuscular HGB Conc 34.2 g/dL (31.5-36.5); Mean Corpuscular Volume 101 fL (80-100); Mean Platelet Volume 10.5 fL (9.1-12.4); NEUTROPHILS ABSOLUTE AUTO 1.92 K/mm3 (1.96-9.15); NEUTROPHILS PERCENT AUTO 33 % (41-73); Platelet Count 170 K/mm3 (150-400); RDW Coefficient Variation 12.5 % (11.7-14.2); RDW Standard Deviation 46.9 fL (35.1-46.3); Red Blood Cell Count 4.34 M/mm3 (4.30-5.90); White Blood Cell Count 5.83 K/mm3 (4.00-11.30)
[2019-10-21 06:39] LABS: Anion Gap 7 mmol/L (6-16); Blood Urea Nitrogen 6 mg/dL (8-24); Bun/Creatinine Ratio 8.1 (12.0-20.0); CO2, Blood 30 mmol/L (21-32); Calcium, Blood 9.1 mg/dL (8.5-10.1); Chloride, Blood 107 mmol/L (98-108); Creatinine, Blood 0.74 mg/dL (0.60-1.20); Glomerular Filtration Rate >60 (60-); Glucose, Blood 88 mg/dL (70-99); Magnesium, Blood 1.9 mg/dL (1.6-2.4); Sodium, Blood 144 mmol/L (136-145)
--- NOTE | 2019-10-21 12:46 | NUR ---
HE IS HAPPY NOW THAT HIS KIDS ARE HERE TO VISIT HIM. HE SHOWERED BEFORE BREAKFAST BECAUSE HE WAS RESTLESS. THEN MID-MORNING THE CLIENT ENGAGEMENT MANAGER TOOK HIM FOR A LONG WALK ON THE UNIT, ALSO BECAUSE HE WAS RESTLESS. HE COMMUNICATED WELL WITH . VSS. TREMORS STILL PRESENT. HE ADMITS THAT HIS SHORT TERM MEMORY IS POOR. HE ALSO HAD DIFFICULTY FIGURING OUT WHAT WAS THE CALL LIGHT AND WHAT WAS THE PHONE.
--- NOTE | 2019-10-21 16:47 | NUR ---
THOUGH HE STARTED OUT RESTLESS AND AGITATED THIS MORNING, HE CALMED AFTER ACTIVITY AND LATER A LONG VISIT FROM HIS KIDS. HE PLANS ON LEAVING TOMORROW. HE SAYS THAT [facility] WILL SUPPLY HIS TRANSPORTATION HOME TO [place]. HE SAYS IT IS INCLUDED IN HIS TREATMENT COST. DC'D ALL [facility] MEDS TODAY, HE IS PAST THE TIMEFRAME FOR WITHDRAWAL. 1 SL DC'D TODAY AND 1 RE-DRESSED. HE AMBULATES WITH CGA IN THE HALLS HE IS DECONDITIONED. NICOTINE PATCH ON.
[2019-10-21] MEDS ORDERED: IBUP400 PO (23:07)
[2019-10-21] MEDS ORDERED: Pepto-Bism525 MG/15 PO (23:07)
[2019-10-21] MEDS ORDERED: ACET500 PO (23:08)
[2019-10-21] MEDS ORDERED: Ativan1 MG PO (23:13)
--- NOTE | 2019-10-21 23:46 | NUR ---
BP elevated earlier, 153/104. asymptomatic. MAR reviewed, med available if SBP gets over 160. Will continue to assess/monitor - JCRN
--- NOTE | 2019-10-22 00:39 | NUR ---
DURING HS ASSESSMENT OF PT WE DISCUSSED ALTERNATIVES TO ETOH FOR A BETTER FUTURE. AFFECT SEEMEED TO IMPROVE HE OPENED UP ABOUT HIS FAMILY AND PAST HISTORY OF ETOH USE. CALL LIGHT IN REACH, USING CALL LIGHT APPROPRIATELY
--- NOTE | 2019-10-22 04:40 | NUR ---
PT HAS BEEN APPROPRIATE IN HIS INTERACTIONS WITH STAFF THROUGHOUT NOCT. NO NOTED ACUTE PHYSICAL DISTRESS. WAS UP AMBULATING WITH STAFF X 1 EARLIER FOR EXERCISE. OTHERWISE HAS BEEN RESTING QUIETLY. CALL LIGHT IN REACH.
[2019-10-22] MEDS ORDERED: NICO21TP TOP (12:49)
[2019-10-22] MEDS ORDERED: ABAT250V (12:49)
--- NOTE | 2019-10-22 17:20 | NUR ---
PT. DISCHARGED BACK TO [facility] VIA TRANSPORT. PT. MEDICATIONS FROM PHARMACY RETURNED TO PT. AND SECURITY BROUGHT THE PT'S ENVELOPE TO ROOM WITH HIS BILLFOLD AND KEYS. NO NOTEABLE CHANGES THIS SHIFT.
== END 2019-10-22 17:17 | disposition home or self-care (01) | DRG 896 ==
LOC: ER 01:58 → ICUE 01:59 → ICUW 01:59 → ICUE 05:28 → MEDS 10-20 16:05 → ENPENDDIS 10-22 14:47 → MEDS 10-22 17:17
PROVIDERS: Emergency Medicine; Internal Medicine; Internal Medicine Pulmonary Disease; ADMIT Internal Medicine
PROC: 5A1945Z Respiratory Ventilation, 24-96 Consecutive Hours (ICD-10-PCS; principal; 2019-10-15)
PROC: 0BH17EZ Insertion of Endotracheal Airway into Trachea, Via Natural or Artificial Opening (ICD-10-PCS; 2019-10-15)
DX: F10.231 Alcohol dependence with withdrawal delirium (principal); J96.01 Acute respiratory failure with hypoxia; I10 Essential (primary) hypertension; F32.9 Major depressive disorder, single episode, unspecified; T17.908A Unspecified foreign body in respiratory tract, part unspecified causing other injury, initial encounter; F17.220 Nicotine dependence, chewing tobacco, uncomplicated
CPT/HCPCS: 31500; 31720; 36415; 51702; 71045; 80048; 80053; 81003; 82803; 83690; 83735; 84100; 85025; 85027; 87070; 87205; 93005; 93010; 94002; 94003; 94640; 96365; 96366; 96372; 96375; 96376; 97112; 97116; 97162; 99285-25; A9270; A9270-GY; C9113; G0378; J0330; J0360; J1650; J2001; J2060; J2405; J2704; J3010; J3411; J3475; J7030; J7040; J7042